=== PATIENT | male | born 1940 | race Caucasian/White ===

== ENCOUNTER 2016-12-05 16:47 | Outpatient (CLI) | payer OTHER, MEDICARE ==
[~2016-12-05 16:47] MED LIST: ALLO100T PO; BRIM10DR2 OP; LIP10 PO; POTA5TAB2 PO
== END 2016-12-05 19:40 | disposition home or self-care (01) ==
LOC: SRD 16:47
PROVIDERS: ATTEND Internal Medicine
DX: J18.9 Pneumonia, unspecified organism (principal)
CPT/HCPCS: 71020-TC

== ENCOUNTER 2019-02-26 08:08 | Emergency (ER) | payer OTHER, MEDICARE ==
[~2019-02-26] VITALS: Ht 175.3 cm; Wt 87.1 kg
[2019-02-26 08:08] VITALS: BP_SYST 191
--- NOTE | 2019-02-26 08:08 | NUR ---
Patient to ER bed 6 to gown for evaluation. Side rails up. Received report from Dorina AGUIRRE.
--- NOTE | 2019-02-26 08:15 | NUR ---
Pt c/o "high blood pressure readings since last night" which SBP was noted in 200s. Pt states he took his 's blood pressure medication at 0200 but does not recall how much or what the medication was. Pt also states he took 2 sudafed for runny nose, and 2 "baby aspirin." Pt states he does not normally have high blood pressure. Pt state no chest pain, no n/v, no other symptoms, and is not currently on BP medications. No other complaints or injuries per pt or noted.
--- NOTE | 2019-02-26 08:16 | NUR ---
ER Dr. Vyas at bedside examining patient.
--- NOTE | 2019-02-26 09:00 | NUR ---
Pt ambulate to bathroom, states no pain or distress.
[2019-02-26] MEDS ORDERED: cloNIDine HCL 0.1 MG TABLET PO ONE (09:15)
[2019-02-26 11:26] VITALS: BP_SYST 142
--- NOTE | 2019-02-26 11:26 | NUR ---
Patient given written and verbal discharge instructions and verbalizes understanding. ER MD discussed with patient the results and treatment provided. Patient in stable condition. ID arm band removed. No Rx given. Patient educated on pain management and to follow up with PMD. Pain Scale 0/10. Opportunity for questions provided and answered. Medication side effect fact sheet provided.
== END 2019-02-26 11:26 | disposition home or self-care (01) ==
LOC: SED 08:08
DX: I10 Essential (primary) hypertension (principal); Z79.899 Other long term (current) drug therapy
CPT/HCPCS: 99283

== ENCOUNTER 2023-03-10 12:34 | Emergency (ER) | payer OTHER, MEDICARE ==
[~2023-03-10] VITALS: Ht 175.3 cm; Wt 85.7 kg
[2023-03-10] MEDS ORDERED: DIPHTH,PERTUSS(ACELL),TET VAC 0.5 ML VIAL (Tdap) I.M. ONE (13:00)
[2023-03-10] MEDS ORDERED: BACITRACIN 1 GM OINT TP ONE (13:00)
[2023-03-10 13:36] VITALS: BP_SYST 156; PULSE 86; RESP 18; TEMP 98.3; O2SAT 96
[2023-03-10 15:14] VITALS: BP_SYST 154; PULSE 86; RESP 17; O2SAT 99
== END 2023-03-10 15:15 | disposition home or self-care (01) ==
LOC: SED 12:34
DX: S91.112A Laceration without foreign body of left great toe without damage to nail, initial encounter (principal); Z79.899 Other long term (current) drug therapy; W29.4XXA Contact with nail gun, initial encounter; Y93.89 Activity, other specified; Y92.89 Other specified places as the place of occurrence of the external cause; Y99.8 Other external cause status
CPT/HCPCS: 99282